=== PATIENT | male | born 2000 | race Caucasian/White ===

== ENCOUNTER 2024-01-02 11:02 | Emergency (ER) | payer OTHER ==
[2024-01-02 11:30] VITALS: BP 132/70; PULSE 100; RESP 18; TEMP 98.6; BMI 18.8
== END 2024-01-02 11:29 | disposition home or self-care (01) ==
LOC: FER 11:02
DX: R20.2 Paresthesia of skin (principal); T78.1XXA Other adverse food reactions, not elsewhere classified, initial encounter; Z91.018 Allergy to other foods
CPT/HCPCS: 99283-25